=== PATIENT | male | born 1965 | race Caucasian/White ===

== ENCOUNTER 2017-01-17 09:00 | Outpatient (CLI) | payer BC, OTHER ==
[~2017-01-17] VITALS: Ht 190.5 cm; Wt 145.1 kg
[~2017-01-17 09:00] MED LIST: ASPI-586 PO; ATEN50TA PO; LOVA20TA2 PO; NAPR500T3 PO
== END 2017-01-17 09:46 ==
LOC: PREOP 09:00
PROVIDERS: ATTEND Internal Medicine
DX: Z01.818 Encounter for other preprocedural examination (principal); Z12.11 Encounter for screening for malignant neoplasm of colon

== ENCOUNTER 2017-01-18 07:55 | Day surgery (SDC) | payer BC, OTHER ==
--- NOTE | 2017-01-14 21:01 | HISTORY AND PHYSICAL ---
DATE OF SERVICE: 01/18/2017 PROCEDURE: COLONOSCOPY HISTORY AND PHYSICAL HISTORY OF PRESENT ILLNESS: The patient is a 51-year-old white male referred by Dr. Julius Kathleen for screening colonoscopy. He is not aware of any family history for colon cancer but does have one brother with Crohn disease. He does believe he has one brother who was recently diagnosed with colon polyps after colonoscopy. He does report ever since undergoing antibiotic therapy, likely doxycycline, for a tick bite, he has had loose stools, 4 to 5 per day and occasionally at night. He had one episode of fecal incontinence. He has had no problems with weight loss. He has noted no blood in the stool. Occasionally will have mild cramping. He denies chills, fever or arthralgia and also denies any problems with rash. PAST MEDICAL HISTORY: Hypertension and hyperlipidemia with no known history of coronary artery disease. PAST SURGICAL HISTORY: Right inguinal hernia repair. MEDICATIONS ON ADMISSION: Atenolol 50 mg daily, lovastatin 20 mg daily, he takes Naprosyn as needed for pain, baby aspirin 81 mg daily and p.r.n. meclizine for vertiginous symptoms. He has also been on Imodium on a p.r.n. basis for diarrhea. FAMILY HISTORY: Only pertinent for brother diagnosed with Crohn disease in his twenties. SOCIAL HISTORY: He denies any past smoking history with no significant alcohol intake. 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 PHYSICAL EXAMINATION: GENERAL: A pleasant white male, appears to be in no acute distress. VITAL SIGNS: Blood pressure was 152/98. Weight is 326.8. CHEST: Clear. NECK: Revealed no JVD, adenopathy or bruits. HEENT: Oral cavity reveals Mallampati class II pharyngeal configuration. He has 2+ tonsils without exudate or erythema. CHEST: Clear. CARDIOVASCULAR: Regular rate and rhythm without murmur, S3 or S4. ABDOMEN: Soft, supple without masses, organomegaly or tenderness. EXTREMITIES: No clubbing, cyanosis or edema. ASSESSMENT: The patient was set up for screening coloscopy on 01/18/2017. PLAN: 1. Preop instructions with the Suprep kit were given and questions were answered. 2. He is to hold his baby aspirin starting today and hold Naprosyn after next Saturday morning. In review of his electronic medical record and the evaluation today 45 minutes of care time was spent by me with another 15 minutes of staff time in going over prep details. Job ID: [id number] DocumentID: [id number] Dictated Date: 01/09/2017 17:51:39 Support Analyst Date: 01/09/2017 18:40:16 Dictated By: SHUN MCCORD MD
[~2017-01-18] VITALS: Ht 190.5 cm; Wt 145.1 kg
[2017-01-18] MEDS ORDERED: NS IV 500 ML 500 ML IV PRN (08:05)
[2017-01-18] MEDS ORDERED: NS IV 500 ML 500 ML ONE (08:09)
[2017-01-18 08:10] VITALS: BP 144/98
[2017-01-18] MEDS ORDERED: FLUMAZENIL (ROMAZICON) 0.1 MG/ML 5 ML VIAL INJ PRN (08:15)
[2017-01-18] MEDS ORDERED: NALOXONE 0.4 MG/ML 1 ML (NARCAN) VIAL IVP PRN (08:15)
[2017-01-18] MEDS ORDERED: MIDAZOLAM 2 MG/2 ML (VERSED) VIAL IVP PRN (08:15)
--- NOTE | 2017-01-18 08:39 | Pre-Op Note & Conscious Sedat ---
Pre-Operative Progress Note H&P Reviewed The H&P was reviewed, patient examined and no changes noted. Date H&P Reviewed: January 18, 2017 Time H&P Reviewed: 08:39 Conscious Sedation Pre-Proced ASA Class: 2 Airway Mallampati Classification: ([place] appropriate class) I. II. III, IV Lungs Heart ASA score ASA 1: a normal healthy patient ASA 2: a patient with a mild systemic disease (mid diabetes, controlled hypertension, obesity ASA 3: a patient with a severe systemic disease that limits activity (angina , COPD, prior Myocardial infarction) ASA 4: a patient with an incapacitating disease that is a constant threat to life (CHF, renal failure) ASA 5: a moribund patient not expected to survive 24 hrs. (ruptured aneurysm) ASA 6: a declared brain patient whose organs are being harvested. For emergent operations, add the letter E after the classification Grade 2 Sedation Plan: Analgesia, Amnesia, Plan communicated to team members, Discussed options with patient/fam, Discussed risks with patient/fam Note The patient is an appropriate candidate to undergo the planned procedure, sedation, and anesthesia. The patient immediately re-assessed prior to indication. SHUN MCCORD MD January 18, 2017 08:39
[2017-01-18] MEDS ORDERED: LIDOCAINE JELLY 2% (XYLOCAINE) 5 ML TUBE ONE (09:02)
[2017-01-18] MEDS ORDERED: MIDAZOLAM 2 MG/2 ML (VERSED) VIAL ONE ×3 (09:02)
[2017-01-18] MEDS ORDERED: fentaNYL INJECTION 100 MCG/2 ML AMP ONE ×2 (09:02)
[2017-01-18] MEDS: fentaNYL INJECTION 100 MCG/2 ML AMP IVP PRN ×2 (09:10→09:15)
[2017-01-18 10:00] VITALS: BP 160/95
[2017-01-18 10:45] VITALS: BP 151/95
[2017-01-18 11:15] VITALS: BP 151/95
--- NOTE | 2017-01-19 09:22 | OPERATIVE REPORT ---
DATE OF SERVICE: COLONOSCOPY INDICATION FOR PROCEDURE: Screening colonoscopy. The patient was placed in the left lateral decubitus position. Prior to undergoing colonoscopy, digital rectal evaluation was performed. Prostate was anodular and nontender to digital inspection and normal in size. No abnormalities were noted on digital inspection of the anal canal or distal rectal vault. The colonoscope was then inserted into the rectum and under direct visualization advanced to the cecum. The cecum was identified by identification of the ileocecal valve, cecal strap and the appendiceal orifice. Photographic documentation was obtained. A careful inspection was made as the colonoscope was withdrawn. FINDINGS: There was no evidence for internal or external hemorrhoids and the rectum was unremarkable. The patient has been having diarrhea, so a biopsy was obtained and submitted to rule out microscopic colitis. The sigmoid colon and descending colon were unremarkable. Present in the proximal transverse colon as well as hepatic flexure were 2 diminutive 3 x 4 mm sessile polyps. They were biopsied and ablated and submitted for histopathology. There is no subsequent blood loss. The remainder of the ascending colon and cecum were unremarkable. ASSESSMENT: 1. Two diminutive polyps with adenomatous features were removed today, one from the hepatic flexure and the other from the proximal transverse colon via hot forceps. This was an otherwise normal colonoscopy of the cecum. Will await on histopathology report prior to making future surveillance colonoscopy recommendations. 2. Due to history of diarrhea, a biopsy from the rectum was obtained and submitted for histopathology evaluation to rule out microscopic colitis. I advised the patient to discontinue Naprosyn and avoid all other nonsteroidal medications as they can be associated with diarrhea with or without microscopic colitis. There will be further recommendations pending histopathology report. I thank you for the referral of this pleasant gentleman. Job ID: [id number] DocumentID: [id number] Dictated Date: 01/18/2017 11:40:30 Home Health Billing Specialist Date: 01/19/2017 05:32:29 Dictated By: SHUN MCCORD MD MTDD
== END 2017-01-18 11:15 | disposition home or self-care (01) ==
LOC: ENDO 07:55
PROVIDERS: ATTEND Internal Medicine
DX: Z12.11 Encounter for screening for malignant neoplasm of colon (principal); D12.3 Benign neoplasm of transverse colon; K63.5 Polyp of colon; R19.7 Diarrhea, unspecified; I10 Essential (primary) hypertension; E78.5 Hyperlipidemia, unspecified; Z83.79 Family history of other diseases of the digestive system; Z79.899 Other long term (current) drug therapy

== ENCOUNTER 2020-10-01 15:43 | Inpatient (IN) | payer BC ==
[~2020-10-01] VITALS: Ht 190.5 cm; Wt 136.0 kg
[~2020-10-01 15:43] MED LIST changes: +NAPR-915 PO; -NAPR500T3 PO
--- NOTE | 2020-10-01 15:56 | ED Abdominal Pain ---
General Stated Complaint: R SIDE PAIN Source of Information: Patient Exam Limitations: No Limitations History of Present Illness Date Seen by Provider: Oct 01, 2020 Time Seen by Provider: 15:46 Initial Comments To ER by private vehicle with a 3-day history of right sided lateral abdominal pain. He states that the skin even feels a little sensitive. No nausea or vomiting no bowel changes no dysuria. He has passed a kidney stone before not felt different than this. Sometimes movement makes the pain little worse but nothing else makes the pain worse and nothing makes it better. He rates it at about 6 out of 10 pretty constant. He was on penicillin last week for a dental infection Timing/Duration: 1-2 Days Severity/Quality: Moderate Radiation: No Radiation Activities at Onset: None Allergies and Home Medications Allergies Coded Allergies: No Known Drug Allergies (Verified , 01/18/17) Home Medications Atenolol 50 Mg Tablet, 50 MG PO DAILY, (Reported) Lovastatin 20 Mg Tablet, 20 MG PO DAILY, (Reported) Patient Home Medication List Home Medication List Reviewed: Yes Review of Systems Review of Systems Constitutional: see HPI EENTM: No Symptoms Reported Respiratory: No Symptoms Reported Cardiovascular: See HPI Gastrointestinal: See HPI, Abdominal Pain; Denies Diarrhea, Denies Nausea Genitourinary: No Symptoms Reported Musculoskeletal: no symptoms reported Skin: no symptoms reported Psychiatric/Neurological: No Symptoms Reported Endocrine: No Symptoms Reported Hematologic/Lymphatic: No Symptoms Reported Past Fpujzlh-Sdivgm-Esreqd Hx Patient Social History Recent Hopitalizations: No Seasonal Allergies Seasonal Allergies: Yes Past Medical History High Cholesterol, Hypertension Physical Exam Vital Signs Vital Signs - First Documented 10/01/20 15:47 Temp 36.1 Pulse 83 Resp 16 B/P (MAP) 157/112 (127) Pulse Ox 96 O2 Delivery Room Air Capillary Refill : Height/Weight/BMI Height: 6'3.00" Weight: 320lbs. 0.0oz. 145.745472lj; 40.0 BMI Method: General Appearance: WD/WN, no apparent distress, other (Very nice [place], alert and oriented, no distress. Abdomen is nontender to palpation. There is a single erythematous papule over the area of tenderness. This could be an early onset of herpes zoster or this single erythematous papule could be unrelated to the pain.) HEENT: PERRL/EOMI, normal ENT inspection Respiratory: no respiratory distress, no accessory muscle use Cardiovascular: regular rate, rhythm, no murmur Gastrointestinal: normal bowel sounds, non tender, soft Neurologic/Psychiatric: alert, normal mood/affect, oriented x 3 Skin: normal color, warm/dry Progress/Results/Core Measures Results/Orders Lab Results Laboratory Tests Test 10/01/20 15:48 10/01/20 15:52 Range/Units Urine Color YELLOW Urine Clarity CLEAR Urine pH 6.0 5-9 Urine Specific [place] 1.010 L 1.016-1.022 Urine Protein NEGATIVE NEGATIVE Urine Glucose (UA) NEGATIVE NEGATIVE Urine Ketones NEGATIVE NEGATIVE Urine Nitrite NEGATIVE NEGATIVE Urine Bilirubin NEGATIVE NEGATIVE Urine Urobilinogen 0.2 < = 1.0 MG/DL Urine Leukocyte Esterase NEGATIVE NEGATIVE Urine RBC (Auto) NEGATIVE NEGATIVE Urine RBC NONE /HPF Urine WBC NONE /HPF Urine Squamous Epithelial Cells 0-2 /HPF Urine Crystals NONE /LPF Urine Bacteria NEGATIVE /HPF Urine Casts NONE /LPF Urine Mucus NEGATIVE /LPF Urine Culture Indicated NO White Blood Count 9.5 4.3-11.0 10^3/uL Red Blood Count 5.24 4.30-5.52 10^6/uL Hemoglobin 15.7 13.3-17.7 g/dL Hematocrit 45 40-54 % Mean Corpuscular Volume 86 80-99 fL Mean Corpuscular Hemoglobin 30 25-34 pg Mean Corpuscular Hemoglobin Concent 35 32-36 g/dL Red Cell Distribution Width 12.8 10.0-14.5 % Platelet Count 290 130-400 10^3/uL Mean Platelet Volume 9.3 9.0-12.2 fL Immature Granulocyte % (Auto) 0 % Neutrophils (%) (Auto) 55 42-75 % Lymphocytes (%) (Auto) 35 12-44 % Monocytes (%) (Auto) 8 0-12 % Eosinophils (%) (Auto) 1 0-10 % Basophils (%) (Auto) 1 0-10 % Neutrophils # (Auto) 5.2 1.8-7.8 10^3/uL Lymphocytes # (Auto) 3.3 1.0-4.0 10^3/uL Monocytes # (Auto) 0.8 0.0-1.0 10^3/uL Eosinophils # (Auto) 0.1 0.0-0.3 10^3/uL Basophils # (Auto) 0.1 0.0-0.1 10^3/uL Immature Granulocyte # (Auto) 0.0 0.0-0.1 10^3/uL Sodium Level 138 135-145 MMOL/L Potassium Level 3.7 3.6-5.0 MMOL/L Chloride Level 103 98-107 MMOL/L Carbon Dioxide Level 22 21-32 MMOL/L Anion Gap 13 5-14 MMOL/L Blood Urea Nitrogen 11 7-18 MG/DL Creatinine 0.88 0.60-1.30 MG/DL Estimat Glomerular Filtration Rate > 60 BUN/Creatinine Ratio 13 Glucose Level 146 H 70-105 MG/DL Calcium Level 9.2 8.5-10.1 MG/DL Corrected Calcium 8.9 8.5-10.1 MG/DL Total Bilirubin 0.4 0.1-1.0 MG/DL Aspartate Amino Transf (AST/SGOT) 24 5-34 U/L Alanine Aminotransferase (ALT/SGPT) 34 0-55 U/L Alkaline Phosphatase 63 40-136 U/L C-Reactive Protein High Sensitivity 0.16 0.00-0.50 MG/DL Total Protein 7.6 6.4-8.2 GM/DL Albumin 4.4 3.2-4.5 GM/DL Lipase 19 8-78 U/L My Orders Orders - ROSA PERDOMO APRN Cbc With Automated Diff (10/01/20 15:54) Comprehensive Metabolic Panel (10/01/20 15:54) Lipase (10/01/20 15:54) Ua Culture If Indicated (10/01/20 15:54) Ed Iv/Invasive Line Start (10/01/20 15:54) Ct Abdomen/Pelvis Wo (10/01/20 15:54) Ketorolac Injection (Toradol Injection) (10/01/20 16:00) Hs C Reactive Protein (10/01/20 16:23) Medications Given in ED Current Medications Medications Dose Ordered Sig/Trevin Route Start Time Stop Time Status Last Admin Dose Admin Ketorolac Tromethamine 15 mg ONCE ONCE IVP 10/01/20 16:00 10/01/20 16:01 DC 10/01/20 16:00 15 MG Vital Signs/I&O 10/01/20 15:47 Temp 36.1 Pulse 83 Resp 16 B/P (MAP) 157/112 (127) Pulse Ox 96 O2 Delivery Room Air Departure Communication (Admissions) Time/Spoke to Admitting Phy: 16:[address] Burden, we will plan for a laparoscopic appendectomy tomorrow versus oral antibiotics which ever the patient would prefer. I discussed the treatment options with the patient and his on speaker phone, they would like to go ahead and get the appendix taken out. She states that he has had some intermittent pain in the right lower quadrant off and on for about 2 years now. Impression Primary Impression: Early Acute appendicitis Disposition: ADMITTED INPATIENT Condition: Stable Admissions Decision to Admit Reason: Admit from ER (General) Decision to Admit/Date: Oct 01, 2020 Time/Decision to Admit Time: 16:47 Departure-Patient Inst. Referrals: ALEXEI UPTON DO (PCP/Family) Primary Care Physician ROSA PERDOMO APRN Oct 01, 2020 15:56
[2020-10-01 15:59] LABS: BILIRUBIN,URINE NEGATIVE (NEGATIVE); CLARITY,URINE CLEAR; COLOR,URINE YELLOW; GLUCOSE, URINE (UA) NEGATIVE (NEGATIVE); KETONES,URINE NEGATIVE (NEGATIVE); LEUKOCYTE ESTERASE ,URINE NEGATIVE (NEGATIVE); NITRITE,URINE NEGATIVE (NEGATIVE); PROTEIN,URINE NEGATIVE (NEGATIVE)
[2020-10-01 16:00] LABS: BASOPHILS # (AUTO) 0.1 10^3/uL (0.0-0.1); BASOPHILS % (AUTO) 1 % (0-10); EOSINOPHILS # (AUTO) 0.1 10^3/uL (0.0-0.3); EOSINOPHILS % (AUTO) 1 % (0-10); HEMATOCRIT 45 % (40-54); HEMOGLOBIN 15.7 g/dL (13.3-17.7); LYMPHOCYTES # (AUTO) 3.3 10^3/uL (1.0-4.0); LYMPHOCYTES % (AUTO) 35 % (12-44); MEAN CORPUSCULAR HEMOGLOBIN 30 pg (25-34); MEAN CORPUSCULAR HGB CONC 35 g/dL (32-36); MEAN CORPUSCULAR VOLUME 86 fL (80-99); MEAN PLATELET VOLUME 9.3 fL (9.0-12.2); MONOCYTES # (AUTO) 0.8 10^3/uL (0.0-1.0); MONOCYTES % (AUTO) 8 % (0-12); NEUTROPHILS # (AUTO) 5.2 10^3/uL (1.8-7.8); NEUTROPHILS % (AUTO) 55 % (42-75); PLATELET COUNT 290 10^3/uL (130-400); WHITE BLOOD COUNT 9.5 10^3/uL (4.3-11.0)
[2020-10-01] MEDS ORDERED: KETOROLAC 30 MG/ML VIAL IVP ONE (16:00)
[2020-10-01 16:07] LABS: ALBUMIN 4.4 GM/DL (3.2-4.5)
[2020-10-01 16:08] LABS: CHLORIDE 103 MMOL/L (98-107); POTASSIUM 3.7 MMOL/L (3.6-5.0); SODIUM 138 MMOL/L (135-145)
[2020-10-01 16:09] LABS: CALCIUM 9.2 MG/DL (8.5-10.1)
[2020-10-01 16:10] LABS: GLUCOSE 146 MG/DL (70-105); TOTAL PROTEIN 7.6 GM/DL (6.4-8.2)
[2020-10-01 16:11] LABS: CARBON DIOXIDE 22 MMOL/L (21-32)
[2020-10-01 16:12] LABS: BILIRUBIN,TOTAL 0.4 MG/DL (0.1-1.0)
[2020-10-01 16:13] LABS: ALKALINE PHOSPHATASE 63 U/L (40-136)
[2020-10-01 16:14] LABS: CREATININE SERUM 0.88 MG/DL (0.60-1.30); GFR ESTIMATED > 60
[2020-10-01 16:15] LABS: BUN/CREATININE RATIO 13
[2020-10-01 16:16] LABS: ALANINE AMINOTRANSFERASE 34 U/L (0-55)
[2020-10-01 16:17] LABS: LIPASE 19 U/L (8-78)
[2020-10-01 16:22] LABS: BACTERIA,URINE NEGATIVE /HPF; SQUAMOUS EPITHELIAL CELL,UR 0-2 /HPF
--- NOTE | 2020-10-01 16:27 | Diagnostic Imaging Report ---
PROCEDURE: CT abdomen and pelvis without contrast. TECHNIQUE: Multiple contiguous axial images were obtained through the abdomen and pelvis without the use of intravenous contrast. Auto Exposure Controls were utilized during the CT exam to meet ALARA standards for radiation dose reduction. INDICATION: Right abdominal pain. FINDINGS: The heart size is normal. The lung bases are clear. The liver is normal in size without focal lesions. Gallbladder is unremarkable. There is no biliary ductal dilatation. Spleen is normal. Pancreas and adrenal glands are unremarkable. There is a punctate nonobstructing stone in the right kidney. There is no evidence of obstructive uropathy. The aorta is nonaneurysmal. The bowel gas pattern is nonspecific. Appendix is somewhat enlarged up to 8.7 mm in diameter. There is no free air. There is no ascites. Bladder is normal. A portion of the dome of the bladder is herniated into the right inguinal canal. There are degenerative changes in the spine. IMPRESSION: 1. Prominent appendix measuring up to 8.7 mm. Additionally there is no air within it. The possibility of subclinical early appendicitis cannot be excluded. Recommend clinical correlation. 2. Punctate nonobstructing stone in the right kidney without evidence of obstructive uropathy. 3. The dome of the bladder is herniated into the right inguinal canal. 4. No other acute adenopathy in the abdomen or pelvis. Dictated by: Dictated on workstation # [id number]
--- NOTE | 2020-10-01 16:56 | Progress Note-Pre Operative ---
Pre-Operative Progress Note H&P Reviewed The H&P was reviewed, patient examined and no changes noted. Date Seen by Provider: Oct 01, 2020 Time Seen by Provider: 17:00 Date H&P Reviewed: Oct 01, 2020 Time H&P Reviewed: 17:00 Pre-Operative Diagnosis: appendicitis, incarcerated right inguinal hernia. CLARENCE LLOYD MD Oct 01, 2020 16:56
--- NOTE | 2020-10-01 17:03 | NUR ---
Attempted to call report. RN not ready for report. She will call when she is ready.
--- NOTE | 2020-10-01 18:05 | HISTORY AND PHYSICAL ---
DATE OF SERVICE: ADMITTING PRIMARY CARE PHYSICIAN: Julius Kathleen DO HISTORY OF PRESENT ILLNESS: The patient is a 54-year-old male who presented to the Emergency Department with a 3-day history of lateral abdominal pain. He states that over time this persisted and worsened slightly as well. He does not report any nausea nor vomiting and is having normal bowel movements. He does have a history of right-sided nephrolithiasis; however, he states that this discomfort is different. A CT scan was performed, which did show an early appendicitis as well as incarcerated right inguinal hernia with bladder within the hernia sac. He is otherwise urinating well and does not have any dysuria or hematuria. PAST MEDICAL HISTORY: Hypertension, hypercholesterolemia. PAST SURGICAL HISTORY: None. ALLERGIES: No known drug allergies. MEDICATIONS: Atenolol 50 mg daily, atorvastatin 20 mg daily. SOCIAL HISTORY: Negative smoke, negative alcohol. FAMILY HISTORY: Noncontributory. VITAL SIGNS: Temperature 36.1, blood pressure 157/112, pulse 83, respirations 16. REVIEW OF SYSTEMS: Well-nourished male, in no acute distress. He is not experiencing any shortness of breath or difficulty breathing. No chest pain, palpitations, diaphoresis. No nausea, vomiting, no diarrhea or constipation. No fever, chills, no recent inadvertent weight loss. All other review of systems negative. PHYSICAL EXAMINATION: CHEST: Clear. Good breath sounds bilaterally. HEART: Regular, no murmurs. EXTREMITIES: No lower extremity edema, negative Homans sign. HEENT: No scleral icterus. NECK: No cervical lymphadenopathy. ABDOMEN: Soft, nondistended. There is pain in the right lower abdominal quadrant upon deep palpation. There are no peritoneal signs. There is a right inguinal hernia, which is tender to palpation. SKIN: Warm, dry. LABORATORY DATA: WBC 9.5, hemoglobin 15.7, hematocrit 45, platelets 290. BUN 11, creatinine 0.88. ASSESSMENT AND PLAN: A 54-year-old male with appendicitis as well as an incarcerated right inguinal hernia. We will proceed with a laparoscopic appendectomy as well as a right inguinal hernia repair with mesh. Job ID: [id number] DocumentID: [id number] Dictated Date: 10/01/2020 17:00:13 Critical Care Paramedic Date: 10/01/2020 18:04:16 Dictated By: CLARENCE LLOYD MD [facility]
--- NOTE | 2020-10-01 18:30 | NUR ---
Vj admitted to room 404-1, with an admitting diagnosis of abdominal pain on 10/01/20 from [place] via wheelchair, accompanied by nurse.VJ CAMPUZANO introduced to surroundings, call light, bed controls, phone, TV, temperature control, lights, meal times, smoking policy, visitor policy, side rail policy, bathrooms and showers. Patient Rights given to patient in the handbook.VJ CAMPUZANO verbalizes understanding that [facility] is not responsible for the loss or damage to any personal effects or valuables that are kept in the patients posession during their hospitalization.
[2020-10-01 19:20] VITALS: BP 172/95
[2020-10-01] MEDS ORDERED: ONDANSETRON 4 MG/2 ML (SDV) Z0FRAN IV PRN (20:00)
[2020-10-01] MEDS ORDERED: fentaNYL INJECTION 100 MCG/2 ML AMP IV PRN (20:00)
[2020-10-01] MEDS ORDERED: cloNIDine 0.1 MG (CATAPRES) TAB PO PRN (20:00)
[2020-10-01] MEDS ORDERED: KETOROLAC 15 MG/ML VIAL IV PRN (20:00)
[2020-10-01] MEDS: LACTATED RINGERS 1,000 ML IV SCH (20:30)
[2020-10-02] VITALS (11 sets, daily range): BP systolic 129–154; BP diastolic 71–83
[2020-10-02] MEDS: LACTATED RINGERS 1,000 ML IV SCH ×3 (03:24→18:14)
[2020-10-02 05:49] LABS: BASOPHILS # (AUTO) 0.1 10^3/uL (0.0-0.1); BASOPHILS % (AUTO) 1 % (0-10); EOSINOPHILS # (AUTO) 0.1 10^3/uL (0.0-0.3); EOSINOPHILS % (AUTO) 1 % (0-10); HEMATOCRIT 42 % (40-54); HEMOGLOBIN 14.3 g/dL (13.3-17.7); LYMPHOCYTES # (AUTO) 2.8 10^3/uL (1.0-4.0); LYMPHOCYTES % (AUTO) 35 % (12-44); MEAN CORPUSCULAR HEMOGLOBIN 30 pg (25-34); MEAN CORPUSCULAR HGB CONC 35 g/dL (32-36); MEAN CORPUSCULAR VOLUME 87 fL (80-99); MEAN PLATELET VOLUME 9.3 fL (9.0-12.2); MONOCYTES # (AUTO) 0.7 10^3/uL (0.0-1.0); MONOCYTES % (AUTO) 9 % (0-12); NEUTROPHILS # (AUTO) 4.2 10^3/uL (1.8-7.8); NEUTROPHILS % (AUTO) 54 % (42-75); PLATELET COUNT 246 10^3/uL (130-400); WHITE BLOOD COUNT 7.9 10^3/uL (4.3-11.0)
[2020-10-02 06:02] LABS: ALBUMIN 3.8 GM/DL (3.2-4.5); CHLORIDE 103 MMOL/L (98-107); POTASSIUM 4.1 MMOL/L (3.6-5.0); SODIUM 138 MMOL/L (135-145)
[2020-10-02 06:03] LABS: CALCIUM 8.8 MG/DL (8.5-10.1)
[2020-10-02 06:04] LABS: GLUCOSE 112 MG/DL (70-105); TOTAL PROTEIN 6.6 GM/DL (6.4-8.2)
[2020-10-02 06:05] LABS: CARBON DIOXIDE 25 MMOL/L (21-32)
[2020-10-02 06:06] LABS: BILIRUBIN,TOTAL 0.6 MG/DL (0.1-1.0)
[2020-10-02 06:08] LABS: ALKALINE PHOSPHATASE 52 U/L (40-136); CREATININE SERUM 0.85 MG/DL (0.60-1.30); GFR ESTIMATED > 60
[2020-10-02 06:09] LABS: BUN/CREATININE RATIO 14
[2020-10-02 06:11] LABS: ALANINE AMINOTRANSFERASE 31 U/L (0-55)
[2020-10-02] MEDS ORDERED: ATENOLOL 50 MG (TENORMIN) TAB PO SCH (09:00)
[2020-10-02] MEDS ORDERED: LIDOCAINE/EPI 1%-1:100,000 (XYLOCAINE) 50 ML ONE (09:13)
--- NOTE | 2020-10-02 10:04 | Progress Note ---
Subjective Date Seen by a Provider: Oct 02, 2020 Time Seen by a Provider: 09:20 Subjective/Events-last exam Patient seen with Dr. Burden. Patient reports doing well this morning. Reports that he has been having some abdominal pain and just took some pain medication. Denies any nausea or vomiting. Reports that he has had 2 previous right inguinal hernias in the past that have been repaired. Objective Exam Vital Signs Date Time Temp Pulse Resp B/P (MAP) Pulse Ox O2 Delivery O2 Flow Rate FiO2 10/02/20 08:00 35.8 68 18 147/82 (103) 93 Room Air 10/02/20 04:00 36.4 69 20 145/71 (95) 93 Room Air 10/02/20 00:00 36.5 71 20 134/83 (100) 94 Room Air 10/01/20 20:30 Room Air 10/01/20 19:20 36.7 68 20 172/95 (120) 96 Room Air 10/01/20 18:30 98 Room Air 10/01/20 17:37 36.1 64 16 146/87 96 Room Air 10/01/20 15:47 36.1 83 16 157/112 (127) 96 Room Air I & O 10/02/20 07:00 Intake Total 150 ml Balance 150 ml Capillary Refill : Less Than 3 SecondsLess Than 3 Seconds General Appearance: No Apparent Distress, WD/WN Neck: Normal Inspection, Supple Respiratory: Normal Breath Sounds, No Accessory Muscle Use, No Respiratory D istress Cardiovascular: Regular Rate, Rhythm, No Edema Gastrointestinal: normal bowel sounds, soft, tenderness, hernia (Right inguinal hernia, incarcerated) Extremity: Normal Inspection, Normal Range of Motion Neurologic/Psychiatric: Alert, Oriented x3 Skin: Normal Color, Warm/Dry (RLQ) Results Lab Laboratory Tests 10/01/20 15:48: Urine Color YELLOW, Urine Clarity CLEAR, Urine pH 6.0, Urine Specific [place] 1.010L, Urine Protein NEGATIVE, Urine Glucose (UA) NEGATIVE, Urine Ketones NEGATIVE, Urine Nitrite NEGATIVE, Urine Bilirubin NEGATIVE, Urine Urobilinogen 0.2, Urine Leukocyte Esterase NEGATIVE, Urine RBC (Auto) NEGATIVE, Urine RBC NONE, Urine WBC NONE, Urine Squamous Epithelial Cells 0-2, Urine Crystals NONE, Urine Bacteria NEGATIVE, Urine Casts NONE, Urine Mucus NEGATIVE, Urine Culture Indicated NO 10/01/20 15:52: White Blood Count 9.5, Red Blood Count 5.24, Hemoglobin 15.7, Hematocrit 45, Mean Corpuscular Volume 86, Mean Corpuscular Hemoglobin 30, Mean Corpuscular Hemoglobin Concent 35, Red Cell Distribution Width 12.8, Platelet Count 290, Mean Platelet Volume 9.3, Immature Granulocyte % (Auto) 0, Neutrophils (%) (Auto) 55, Lymphocytes (%) (Auto) 35, Monocytes (%) (Auto) 8, Eosinophils (%) (Auto) 1, Basophils (%) (Auto) 1, Neutrophils # (Auto) 5.2, Lymphocytes # (Auto) 3.3, Monocytes # (Auto) 0.8, Eosinophils # (Auto) 0.1, Basophils # (Auto) 0.1, Immature Granulocyte # (Auto) 0.0, Sodium Level 138, Potassium Level 3.7, Chloride Level 103, Carbon Dioxide Level 22, Anion Gap 13, Blood Urea Nitrogen 11, Creatinine 0.88, Estimat Glomerular Filtration Rate > 60, BUN/Creatinine Rat io 13, Glucose Level 146H, Calcium Level 9.2, Corrected Calcium 8.9, Total Bilirubin 0.4, Aspartate Amino Transf (AST/SGOT) 24, Alanine Aminotransferase (ALT/SGPT) 34, Alkaline Phosphatase 63, C-Reactive Protein High Sensitivity 0.16, Total Protein 7.6, Albumin 4.4, Lipase 19 10/01/20 18:24: 10/02/20 05:23: White Blood Count 7.9, Red Blood Count 4.79, Hemoglobin 14.3, Hematocrit 42, Mean Corpuscular Volume 87, Mean Corpuscular Hemoglobin 30, Mean Corpuscular Hemoglobin Concent 35, Red Cell Distribution Width 12.8, Platelet Count 246, Mean Platelet Volume 9.3, Immature Granulocyte % (Auto) 0, Neutrophils (%) (Auto) 54, Lymphocytes (%) (Auto) 35, Monocytes (%) (Auto) 9, Eosinophils (%) (Auto) 1, Basophils (%) (Auto) 1, Neutrophils # (Auto) 4.2, Lymphocytes # (Auto) 2.8, Monocytes # (Auto) 0.7, Eosinophils # (Auto) 0.1, Basophils # (Auto) 0.1, I mmature Granulocyte # (Auto) 0.0, Sodium Level 138, Potassium Level 4.1, Chloride Level 103, Carbon Dioxide Level 25, Anion Gap 10, Blood Urea Nitrogen 12, Creatinine 0.85, Estimat Glomerular Filtration Rate > 60, BUN/Creatinine Ratio 14, Glucose Level 112H, Calcium Level 8.8, Corrected Calcium 9.0, Total Bilirubin 0.6, Aspartate Amino Transf (AST/SGOT) 22, Alanine Aminotransferase (ALT/SGPT) 31, Alkaline Phosphatase 52, Total Protein 6.6, Albumin 3.8 Assessment/Plan Assessment/Plan Assess & Plan/Chief Complaint A 54 year old male with acute appendicitis as well as an incarcerated right inguinal hernia VSS WBC 7.9 Will proceed with a laparoscopic appendectomy and right inguinal hernia repair with mesh JEAN-CLAUDE STARKS [employer]OD SERVICE DRIVER Oct 02, 2020 10:04
[2020-10-02] MEDS ORDERED: LIDOCAINE PF 2% 5 ML (XYLOCAINE) VIAL ONE (10:51)
[2020-10-02] MEDS ORDERED: HYDR-3817 PO (10:51)
[2020-10-02] MEDS ORDERED: fentaNYL INJECTION 100 MCG/2 ML AMP ONE (10:51)
[2020-10-02] MEDS ORDERED: ROCURONIUM 10 MG/ML 5 ML SYRINGE IV ONE (10:51)
[2020-10-02] MEDS ORDERED: MIDAZOLAM 2 MG/2 ML (VERSED) VIAL ONE (10:51)
[2020-10-02] MEDS ORDERED: ONDANSETRON 4 MG/2 ML (SDV) Z0FRAN ONE (10:51)
[2020-10-02] MEDS ORDERED: proPOfol 200 MG/20 ML (DIPRIVAN) VIAL IV ONE (10:51)
--- NOTE | 2020-10-02 10:51 | Discharge Inst-Surgical ---
D/C Lap Instructions-GABINO New, Converted, or Re-Newed RX: RX on Chart Follow Up Appt in 2 weeks Activity as tolerated No driving for 24 hours No [address] while on pain medications Incentive Spirometry use every 2 hours while awake Regular Diet Symptoms to Report: Fever over 101 degree F, Nausea/Vomiting Infection Signs and Symptoms to report: Increased redness, Foul odor of wound, Increased drainage Bathing instructions: May shower Operative Area Clean/Dry; Keep incision clean/dry If any problems/questions: Contact your physician or go to Emergency Room CLARENCE LLOYD MD Oct 02, 2020 10:51
[2020-10-02] MEDS: LACTATED RINGERS 1,000 ML IV PRN ×2 (11:09→12:05)
[2020-10-02] MEDS ORDERED: ceFAZolin INJECTION 2,000 MG ONE (11:33)
[2020-10-02] MEDS ORDERED: ceFAZolin INJECTION 1,000 MG VIAL IV ONE (12:00)
[2020-10-02] MEDS ORDERED: morphine INJ 10 MG/ML 1ML (SYR OR VIAL) ONE (12:11)
[2020-10-02] MEDS ORDERED: SEVOFLURANE (ULTANE) 15 ML INHAL SOLN ONE ×7 (12:39)
--- NOTE | 2020-10-02 12:42 | Progress Note-Post Operative ---
Post-Operative Progess Note Surgeon (s)/Business Reporter (s) Surgeon CLARENCE LLOYD MD Business Reporter: grace guzman SYSTEMS ANALYST Pre-Operative Diagnosis appendicitis, incarcerated right inguinal hernia. Post-Operative Diagnosis same Procedure & Operative Findings Date of Procedure 10/02/20 Procedure Performed/Findings laparoscopic right incarcerated inguinal hernia repair with mesh, appendectomy Anesthesia Type get Estimated Blood Loss Estimated blood loss (mL): minimal Specimens/Packing Specimens Removed appendix CLARENCE LLOYD MD Oct 02, 2020 12:42
[2020-10-02] MEDS ORDERED: NEOSTIGMINE 3 MG/3 ML VIAL ONE (12:54)
[2020-10-02] MEDS ORDERED: GLYCOPYRROLATE 0.2 MG/ML (ROBINUL) 2 ML VIAL ONE (12:54)
[2020-10-02] MEDS ORDERED: morphine INJ 10 MG/ML 1ML (SYR OR VIAL) IVP ONE (13:00)
[2020-10-02] MEDS ORDERED: MEPERIDINE (DEMEROL) INJ 50 MG/ML IVP ONE (13:00)
[2020-10-02] MEDS ORDERED: ONDANSETRON 4 MG/2 ML (SDV) Z0FRAN IVP PRN (13:00)
[2020-10-02] MEDS ORDERED: PROMETHAZINE INJ 25 MG/ML (PHENERGAN) AMP IVP ONE (13:00)
[2020-10-02] MEDS ORDERED: HYDROmorphone 2 MG/ML VIAL (DILAUDID) IV ONE (13:00)
[2020-10-02] MEDS: HYDROcodone/APAP 7.5 MG/325 MG (LORTAB, LORCET PLUS) TABLET PO PRN ×2 (14:25→18:00)
--- NOTE | 2020-10-02 18:05 | OPERATIVE REPORT ---
DATE OF SERVICE: 10/02/2020 ATTENDING PRIMARY CARE PHYSICIAN: Dr. Julius Kathleen PREOPERATIVE DIAGNOSES: Early appendicitis and incarcerated sliding recurrent right inguinal hernia. POSTOPERATIVE DIAGNOSES: Early acute appendicitis with increased turgor pressure, no phlegmon or perforation, recurrent right isliding nguinal hernia with bladder within the hernia sac. PROCEDURES PERFORMED: Laparoscopic incarcerated recurrent right inguinal hernia repair with mesh and laparoscopic appendectomy. SURGEON: Julienne Burden MD. INFORMATION BROKER: Jason Barroso APRN. ANESTHESIA: General endotracheal. ESTIMATED BLOOD LOSS: Minimal. FINDINGS: Same as postoperative diagnoses. DISPOSITION: The patient tolerated the procedure well. INDICATIONS FOR PROCEDURE: The patient is a 54-year-old male, who presented to the Emergency Department with a three-day history of lateral abdominal pain. He states that over time this persisted and worsened as well. He does not report any nausea, no vomiting and is having normal bowel movements. He does have a history of right-sided nephrolithiasis; however, stated that this discomfort was different. A CT scan was performed, which did show an early appendicitis as well as an incarcerated right inguinal hernia with bladder within the hernia sac. He states he is otherwise urinating well and not experiencing any dysuria or hematuria; however, has noticed increased frequency. DESCRIPTION OF PROCEDURE: The patient was brought to the operating room and laid supine on the table. After adequate IV pain and sedative medications and general endotracheal intubation, the abdomen was prepped and draped in a standard surgical fashion. A 0.5% Marcaine with epinephrine was used to anesthetize the overlying skin in the left lateral abdomen and a transverse skin incision was made using a 15-blade. A 0 silk suture was applied to the medial aspect of the incision for retraction and a Veress needle was inserted with a low opening pressure of 0 mmHg. The Veress needle was removed and a 5 mm XL trocar placed followed by a 5 mm 45-degree angle laparoscope visualizing the peritoneal cavity. A 4-quadrant abdominal exploration was performed. There was a recurrent right direct inguinal hernia with bladder within the hernia sac. There was an increased turgor pressure of the appendix with slight edema consistent with the early appendicitis. No phlegmon or perforation. Under direct visualization, we then proceeded to place a supraumbilical 10 mm port after the skin and peritoneal lining were anesthetized using 0.5% Marcaine with epinephrine and a transverse skin incision was made using a 15-blade. In a similar manner, a right lateral 5 mm port was placed. We first proceeded with the recurrent incarcerated right inguinal hernia repair by opening up the mesentery starting laterally towards the conjoined tendon and inguinal ligament. There was already mesh underneath and there was significant scar tissue. We then proceeded with meticulous dissection of the previous mesh as well as the peritoneal lining until Vasiliy's ligament was reached. The bladder was identified and spared and completely dissected out of the fascial defect. Good hemostasis was observed. A large 3DMax polypropylene mesh was then placed into the peritoneal cavity and tacked to the Vasiliy's ligament medially, making sure to cover the defect and distal disawing reduction of the bladder back into the defect. This was done with an absorbable tack. We then tacked the lateral edge to the inguinal ligament. The peritoneal lining as well as the old mesh were then placed over the new mesh and a few absorbable tacks were placed to hold this in place with visualization of good hemostasis. Under direct visualization, the appendix was identified, which was scarred down from previous hernia repair. This was then dissected out using the Sonicision. The mesoappendix was then opened using Sonicision with visualization of good hemostasis. The appendix was then stapled and transected at the cecal base using a MARTHA 45 mm stapler with a 2.5 mm thickness load with visualization of good hemostasis. The appendix was removed through the 10 mm port site using an EndoCatch bag. The 10 mm port site fascia and peritoneum were then closed under direct visualization using a Martín-Jordyn device and 0 Vicryl suture. The abdomen was desufflated and the remaining ports were removed. All skin incisions were closed using 4-0 Monocryl running subcuticular suture. Wounds were then cleaned and covered with Dermabond. The patient tolerated the procedure well. We will start IV normal pain medication as well as a clear liquid diet. Once he is tolerating clears, has good pain control with oral pain medications and ambulating well, we will discharge him home. He will be instructed to do no heavy lifting or exertion for the next six weeks. Job ID: [id number] DocumentID: [id number] Dictated Date: 10/02/2020 12:51:14 Floor Nurse Date: 10/02/2020 18:04:50 Dictated By: MD BOO CASTLE
--- NOTE | 2020-10-03 06:39 | Anesthesia-General Post-Op ---
General Patient Condition Mental Status/LOC: Same as Preop Cardiovascular: Satisfactory Nausea/Vomiting: Absent Respiratory: Satisfactory Pain: Controlled Complications: Absent Post Op Complications Complications None Follow Up Care/Instructions Patient Instructions None needed. Anesthesia/Patient Condition Patient Condition Patient is doing well, no complaints, stable vital signs, no apparent adverse anesthesia problems. No complications reported per nursing. JUAN A ALBERT CRNA Oct 03, 2020 06:38
--- NOTE | 2020-10-04 07:52 | NUR ---
Received dietary consult for MST score. Note pt has discharged at this time. Vicky Ponce, MS RD LD
== END 2020-10-02 18:38 | disposition home or self-care (01) | DRG 342 ==
LOC: EDUNIT# 15:43 → ER 15:45 → 4TH 16:45
PROVIDERS: ADMIT Surgery; ATTEND Surgery
PROC: 0YU54JZ Supplement Right Inguinal Region with Synthetic Substitute, Percutaneous Endoscopic Approach (ICD-10-PCS; 2020-10-02)
PROC: 0DTJ4ZZ Resection of Appendix, Percutaneous Endoscopic Approach (ICD-10-PCS; principal; 2020-10-02 11:12)
DX: K35.80 Unspecified acute appendicitis (principal); K40.30 Unilateral inguinal hernia, with obstruction, without gangrene, not specified as recurrent; I10 Essential (primary) hypertension; E78.00 Pure hypercholesterolemia, unspecified; Z20.822 Contact with and (suspected) exposure to COVID-19
CPT/HCPCS: 36415; 74176; 80053; 81000; 83690; 85025; 86141; 87081; 87635

== ENCOUNTER 2022-06-22 05:34 | Emergency (ER) | payer BC ==
[~2022-06-22 05:34] MED LIST changes: +HYDR-3817 PO
[2022-06-22 06:17] LABS: BILIRUBIN,URINE NEGATIVE (NEGATIVE); CLARITY,URINE CLOUDY; COLOR,URINE YELLOW; GLUCOSE, URINE (UA) NEGATIVE (NEGATIVE); KETONES,URINE NEGATIVE (NEGATIVE); LEUKOCYTE ESTERASE ,URINE NEGATIVE (NEGATIVE); NITRITE,URINE NEGATIVE (NEGATIVE); PH,URINE 5.5 (5-9); PROTEIN,URINE NEGATIVE (NEGATIVE)
--- NOTE | 2022-06-22 06:18 | ED Abdominal Pain ---
General Chief Complaint: Abdominal/GI Problems Stated Complaint: ABD PAIN,VOMITING Nursing Triage Note: PT ARRIVAL TO ER BY PRIVATE VEHICLE WITH COMPLAINT OF ABDOMINAL PAIN / VOMITING SINCE 0. PT STATES THAT HE WOKE UP TO SEVERE CRAMPING LIKE PAINS JUST BELOW UMBILICUS. PT STATES THAT HE ALSO HAS VOMITED SEVERAL TIMES. PT STATES THAT HE DOESNT HAVE HIS APPENDIX. PT STATES THAT HE HAS HISTORY OF KIDNEY STONES, BUT DOESNT THINK THIS IS ONE. PT STATES THAT HE DID HAVE SOME INCONSISTANT FLOW WITH URINATION THIS AM. PAIN CURRENTLY AT 5/10. Source of Information: Patient, Family Exam Limitations: No Limitations History of Present Illness Date Seen by Provider: Jun 22, 2022 Time Seen by Provider: 05:46 Initial Comments This 56-year-old gentleman presents to the emergency room with complaints of pain in the suprapubic region that came on suddenly about 0. Pain was very intense initially and has now subsided. He had associated vomiting. Urine was a bit darker today but not grossly abnormal. He has history of ureteral stones. Allergies and Home Medications Allergies Coded Allergies: No Known Drug Allergies (Verified , 01/18/17) Patient Home Medication List Home Medication List Reviewed: Yes Atenolol (Atenolol) 50 Mg Tablet, 50 MG PO DAILY, (Reported) Entered as Reported by: FLORENCIA MALIN on 01/17/17 0853 Hydrocodone/Acetaminophen (Hydrocodone-Acetamin 7.5-325) 1 Each Tablet, 1 EACH PO Q4H Prescribed by: CLARENCE LLOYD on 10/02/20 1051 Lovastatin (Lovastatin) 20 Mg Tablet, 20 MG PO DAILY, (Reported) Entered as Reported by: FLORENCIA MALIN on 01/17/17 0853 Review of Systems Review of Systems Constitutional: no symptoms reported EENTM: No Symptoms Reported Respiratory: No Symptoms Reported Cardiovascular: No Symptoms Reported Gastrointestinal: No Symptoms Reported Genitourinary: No Symptoms Reported Musculoskeletal: no symptoms reported Skin: no symptoms reported Psychiatric/Neurological: No Symptoms Reported Endocrine: No Symptoms Reported Hematologic/Lymphatic: No Symptoms Reported Past Sypofut-Hbnnzv-Tvizot Hx Patient Social History Tobacco Use?: No Use of E-Cig and/or Vaping dev: No Substance use?: No Alcohol Use?: No Pt feels they are or have been: No Immunizations Up To Date Influenza Vaccine Up-to-Date: No; Not Current Third COVID19 Vaccination Date: 03/30 COVID19 Vaccine Outreach Liaison: MODERNEva Seasonal Allergies Seasonal Allergies: Yes Past Medical History Surgeries: Yes (umb hernia, ing hernia x2, ) Appendectomy Respiratory: No Cardiac: Yes High Cholesterol, Hypertension Neurological: No Genitourinary: Yes Kidney Stones Gastrointestinal: No Musculoskeletal: No Endocrine: No HEENT: No Cancer: No Psychosocial: No Integumentary: No Blood Disorders: No Physical Exam Vital Signs Vital Signs - First Documented 06/22/22 05:43 Temp 36.9 Pulse 70 Resp 18 B/P (MAP) 130/87 (101) Pulse Ox 94 O2 Delivery Room Air Capillary Refill : Less Than 3 Seconds Height/Weight/BMI Height: 6'3.00" Weight: 320lbs. 0.0oz. 145.416083sd; 37.47 BMI Method: General Appearance: WD/WN, no apparent distress HEENT: normal ENT inspection Neck: normal inspection Respiratory: chest non-tender, lungs clear, normal breath sounds, no respiratory distress, no accessory muscle use, respiratory distress, decreased breath sounds, accessory muscle use, crackles, rales, rhonchi, stridor, wheezing, expiration, inspiration, plerual rub, other Cardiovascular: regular rate, rhythm, no edema, no gallop Gastrointestinal: normal bowel sounds, non tender, soft Extremities: normal inspection, no pedal edema Neurologic/Psychiatric: no motor/sensory deficits, alert, normal mood/affect, oriented x 3 Skin: normal color, warm/dry Progress/Results/Core Measures Results/Orders Lab Results Laboratory Tests Test 06/22/22 06:14 06/22/22 06:22 Range/Units Urine Color YELLOW Urine Clarity CLOUDY Urine pH 5.5 5-9 Urine Specific [place] 1.025 H 1.016-1.022 Urine Protein NEGATIVE NEGATIVE Urine Glucose (UA) NEGATIVE NEGATIVE Urine Ketones NEGATIVE NEGATIVE Urine Nitrite NEGATIVE NEGATIVE Urine Bilirubin NEGATIVE NEGATIVE Urine Urobilinogen 0.2 < = 1.0 MG/DL Urine Leukocyte Esterase NEGATIVE NEGATIVE Urine RBC (Auto) 3+ H NEGATIVE Urine RBC 50-100 H /HPF Urine WBC NONE /HPF Urine Squamous Epithelial Cells 2-5 /HPF Urine Crystals NONE /LPF Urine Bacteria NEGATIVE /HPF Urine Casts NONE /LPF Urine Mucus NEGATIVE /LPF Urine Culture Indicated NO My Orders Orders - AMBER ARGUELLO MD Ua Culture If Indicated (06/22/22 06:03) Kidney Stone (06/22/22 06:04) Vital Signs/I&O 06/22/22 06/22/22 05:43 06:34 Temp 36.9 36.9 Pulse 70 70 Resp 18 18 B/P (MAP) 130/87 (101) 130/87 Pulse Ox 94 94 O2 Delivery Room Air Room Air Blood Pressure Mean: 101 Progress Progress Note : Time: 06:21 Progress Note Pain and nausea had resolved by the time of my exam. Patient provided urine specimen with a stone of significant size passed along with it. He did not require any medication. Departure Impression Primary Impression: Ureteral stone Disposition: HOME, SELF-CARE Condition: Improved Departure-Patient Inst. Decision time for Depature: 06:23 Referrals: GABY RANGEL MD (PCP/Family) Primary Care Physician Patient Instructions: Kidney Stones in Adults Add. Discharge Instructions: Drink plenty of clear liquids to stay well-hydrated. You may use ibuprofen up to 600 mg every 6 hours and/or Tylenol (acetaminophen) up to 1000 mg every 6 hours as needed for residual pain. The kidney stone you passed is being processed in the lab. This analysis should help you determine the best ways to prevent recurrence of kidney stones. Review these results with your doctor when they are available. Return to care if you have worsening symptoms. All discharge instructions reviewed with patient and/or family. Voiced understanding. Copy Copies To 1: GABY RANGEL MD, JOSHUA T MD Jun 22, 2022 06:18
[2022-06-22 06:26] LABS: BACTERIA,URINE NEGATIVE /HPF; RBC,URINE 50-100 /HPF
[2022-06-22 06:34] VITALS: BP 130/87
[2022-06-22] MEDS ORDERED: LIDOCAINE 1% INJ 20 ML VIAL ONE (10:33)
== END 2022-06-22 06:36 | disposition home or self-care (01) ==
LOC: EDUNIT# 05:34 → ER 05:38
DX: N20.1 Calculus of ureter (principal)
CPT/HCPCS: 81000; 99282